=== PATIENT | male | born 1995 | race African-American/Black ===

== ENCOUNTER → 2020-03-08 | Outpatient (CLI) | payer OTHER ==
--- NOTE | 2020-03-08 16:12 | RAD ---
3 views of the abdomen 03/08/2020 INDICATION: Abdominal discomfort, nausea COMPARISON STUDY: None FINDINGS: The bowel gas pattern is nonobstructive. No gross pneumoperitoneum is identified. No concerning pathologic calcifications are seen. No acute osseous changes are seen. IMPRESSION: No radiographic evidence of acute intra-abdominal abnormality Electronically signed by: Tip Montana MD (03/08/2020 4:09 PM) [id number]
== END ==
LOC: RAD 14:10
PROVIDERS: ATTEND Physician Assistant
DX: R11.0 Nausea (principal); R10.9 Unspecified abdominal pain
CPT/HCPCS: 74019

== ENCOUNTER → 2020-03-08 | Outpatient (CLI) | payer OTHER ==
[2020-03-08 16:04] LABS: BASO % 1 % (0-3); EOS # 0.1 x10^3/uL (0.0-0.7); EOS % 2 % (0-3); HEMATOCRIT 42.2 % (39.0-53.0); HEMOGLOBIN 14.4 g/dL (13.0-17.5); LYMPH # 0.8 x10^3/uL (1.0-4.8); LYMPH % 26 % (24-48); MEAN CORPUSCULAR HEMOGLOBIN 31 pg (25-35); MEAN CORPUSCULAR HGB CONC 34 g/dL (31-37); MEAN CORPUSCULAR VOLUME 91 fL (79-100); MONO # 0.3 x10^3/uL (0.0-1.1); MONO % 10 % (0-9); NEUT # 1.8 x10^3uL (1.8-7.7); NEUT % 61 % (31-73); PLATELET COUNT 190 x10^3/uL (140-400); RED BLOOD COUNT 4.62 x10^6/uL (4.30-5.70); RED CELL DISTRIBUTION WIDTH 13.2 % (11.5-14.5)
[2020-03-08 16:14] LABS: ALBUMIN 4.8 g/dL (3.4-5.0); ALBUMIN/GLOBULIN RATIO 1.4 (1.0-1.7); BILIRUBIN,URINE NEG (NEG); CALCIUM 9.6 mg/dL (8.5-10.1); CLARITY,URINE CLEAR; COLOR,URINE STRAW; CREATININE 1.3 mg/dL (0.7-1.3); GFR 81.4; GLUCOSE,URINE NEG (NEG); POTASSIUM 3.9 mmol/L (3.5-5.1); TOTAL BILIRUBIN 0.6 mg/dL (0.2-1.0); TOTAL PROTEIN 8.3 g/dL (6.4-8.2)
[2020-03-08 16:15] LABS: NITRITE,URINE NEG (NEG); UROBILINOGEN,URINE 0.2 mg/dL (0.2 mg/dL)
[2020-03-08 16:17] LABS: BACTERIA,URINE 0 /HPF (0-FEW); RBC,URINE RARE /HPF (0-2); SQUAMOUS EPITHELIAL CELL,UR OCC /LPF; WBC,URINE 0 /HPF (0-4)
[2020-03-09 15:27] LABS: FREE T4 1.12 ng/dL (0.76-1.46); THYROID STIM HORMONE (TSH) 0.693 uIU/mL (0.358-3.740)
== END ==
LOC: RAD 14:19
PROVIDERS: ATTEND Physician Assistant
DX: J30.2 Other seasonal allergic rhinitis (principal); R51.9 Headache, unspecified
CPT/HCPCS: 36415; 80053; 81001; 84439; 84443; 85025; 86140; 87536

== ENCOUNTER → 2020-04-26 | Outpatient (CLI) | payer OTHER ==
--- NOTE | 2020-04-26 09:41 | RAD ---
PA and lateral chest. HISTORY: Cough PA and lateral views were taken of the chest. There is no pneumothorax or pleural effusion. Lungs are free of infiltrates. Heart is normal in size. There is mild hyperexpansion, reactive airway disease is possible. IMPRESSION: 1. Mild hyperexpansion. 2. No acute infiltrates. Electronically signed by: Homer Henning MD (04/26/2020 9:38 AM) [id number]
== END ==
LOC: PMG 09:18
DX: R06.00 Dyspnea, unspecified (principal)
CPT/HCPCS: 71046